=== PATIENT | female | born 1975 | race Caucasian/White ===

== ENCOUNTER → 2016-12-09 | Outpatient (CLI) | payer BC ==
[~2016-12-09] VITALS: Ht 154.9 cm; Wt 73.1 kg
[~2016-12-09] MED LIST: BREAST PUMP MC; DOCUSATE SODIU100 MG PO; ENDOCET 5-3251 EACH PO; IBUPROFEN800 MG PO; OMEGA DHA92 MG PO; PRENATAL + DHA1 EAC1 PO; PROBIOTIC1 EAC1 PO; ZANTAC150 MG PO; ZYRTEC10 M3 PO
[2016-12-09 19:13] VITALS: BP 103/62
== END | disposition home or self-care (01) ==
LOC: IVINF 19:00
DX: Z31.82 Encounter for Rh incompatibility status (principal); Z3A.28 28 weeks gestation of pregnancy
CPT/HCPCS: 96372; J2790

== ENCOUNTER 2017-02-18 05:35 | Inpatient (IN) | payer BC ==
[~2017-02-18] VITALS: Ht 154.9 cm; Wt 80.0 kg
[~2017-02-18 05:35] MED LIST changes: +MULTIPLE VITAM1 EACH PO; +PROBIOTIC POWDER PO
[2017-02-18 06:07] VITALS: BP 107/66
[2017-02-18] MEDS ORDERED: IBUPROFEN800 MG PO (08:34)
[2017-02-18] MEDS ORDERED: ENDOCET 5-3251 EACH PO (08:35)
[2017-02-18 14:00] VITALS: BP 103/58
[2017-02-18 16:02] VITALS: BP 108/72
[2017-02-18 17:46] VITALS: BP 108/71
[2017-02-18 22:33] VITALS: BP 94/51
[2017-02-19 03:56] VITALS: BP 105/61
[2017-02-19 05:55] LABS: BASOPHIL COUNT 0.1 K/uL (0-0.1); EOSINOPHIL (%) 1.8 % (0-5); EOSINOPHIL COUNT 0.2 K/uL (0-0.3); HEMATOCRIT 27.3 % (36.0-46.0); IMMATURE GRANULOCYTE COUNT 0.1 K/uL; INSTRUMENT ABS NEUTROPHIL CT 7.5 K/uL; LYMPHOCYTE COUNT 2.7 K/uL (1.0-2.8); MCHC 32.6 G/DL (30.0-36.0); MCV 98.2 FL (83-99); MEAN PLAT.VOLUME 11.5 uM^3 (9.5-12.4); MONOCYTE COUNT 0.9 K/uL (0-0.8); NEUTROPHIL (%) 65.3 % (45-76); NEUTROPHIL COUNT 7.5 K/uL (1.8-6.4); PLATELET COUNT 157 K/uL (156-360); RBC DIS.WIDTH-CV 13.2 % (11.8-14.6); RBC DIS.WIDTH-SD 46.6 % (39-53); WHITE BLOOD COUNT 11.4 K/uL (4.1-10.2)
[2017-02-19 05:57] LABS: RED BLOOD COUNT 2.78 M/uL (3.80-5.20)
[2017-02-19 11:27] VITALS: BP 106/67
[2017-02-19 19:26] VITALS: BP 103/67
== END 2017-02-20 16:41 | disposition home or self-care (01) | DRG 766 ==
LOC: 2WEST 05:35 → 2SOUTH 08:48 → 2WEST 02-20 16:41
PROVIDERS: Obstetrics & Gynecology
PROC: 10D00Z1 Extraction of Products of Conception, Low, Open Approach (ICD-10-PCS; principal; 2017-02-18)
DX: O34.211 Maternal care for low transverse scar from previous cesarean delivery (principal); O69.81X0 Labor and delivery complicated by cord around neck, without compression, not applicable or unspecified; O99.613 Diseases of the digestive system complicating pregnancy, third trimester; K21.9 Gastro-esophageal reflux disease without esophagitis; Z37.0 Single live birth; Z3A.39 39 weeks gestation of pregnancy
CPT/HCPCS: 36415; 83030; 85025; 86850; 86870; 86900; 86901; 86905; 86920; 86999; J0690; J1100; J1885; J2274; J2405; J2790; J3010; J7120